=== PATIENT | female | born 1975 | race Caucasian/White ===

== ENCOUNTER 2017-11-03 17:34 | Emergency (ER) | payer SELFPAY ==
[2017-11-03 17:34] VITALS: BMI 25.0
[2017-11-03 17:39] VITALS: BP 145/94; PULSE 81; RESP 16; TEMP 98.1; O2SAT 98
[2017-11-03 18:08] LABS: SQUAMOUS EPITHIAL 5 /hpf (0-5); URINE BACTERIA RARE (<OCC); URINE BILIRUBIN NEGATIVE (NEGATIVE); URINE BLOOD NEGATIVE (NEGATIVE); URINE CLARITY Clear (Clear); URINE COLOR Yellow (YELLOW); URINE GLUCOSE (UA) NORMAL (Normal); URINE LEUKOCYTE ESTERASE NEG Leu/uL (Negative); URINE PROTEIN NEGATIVE (NEGATIVE); URINE UROBILINOGEN NORMAL mg/dL (0.2-1.0)
[2017-11-03 18:11] LABS: HCG,QUALITATIVE URINE NEGATIVE (NEGATIVE)
--- NOTE | 2017-11-03 19:24 | C.PDOC ---
History Of Present Illness 42 y/o female presents to the ED for evaluation of an itching and burning sensation to her vaginal area which began yesterday. Patient thought she had a UTI, for which she took leftover Amoxicillin without relief. She reports similar symptoms in the past, she gets a yeast infection after taking antibiotics and this feels similar. Patient is not concerned for STDs. Patient denies fever, vaginal discharge or bleeding , abdominal pain, back pain, rash or n/v. Time Seen by Provider: 11/03/17 18:20 Chief Complaint (Nursing): Female Genitourinary History Per: Patient History/Exam Limitations: no limitations Onset/Duration Of Symptoms: Hrs Current Symptoms Are (Timing): Still Present Quality Of Discomfort: Burning Associated Symptoms: denies: Fever, Chills Additional History Per: Patient Abnormal Vaginal Bleeding: No Past Medical History Reviewed: Historical Data, Nursing Documentation, Vital Signs Vital Signs: Last Vital Signs Temp 98.1 F 11/03/17 17:36 Pulse 81 11/03/17 17:36 Resp 16 11/03/17 17:36 BP 145/94 H 11/03/17 17:36 Pulse Ox 98 11/05/17 03:10 - Medical History PMH: Gastritis, Rheumatoid Arthritis Denies: Arthritis, Colonic Polyps, Crohn's Disease, Diverticulitis, Fractures , Gall Bladder Disease, Osteoporosis, Pancreatitis, Chronic Kidney Disease Surgical History: No Surg Hx Denies: Appendectomy, CABG, Carotid Endarterectomy, Cholecystectomy, Coronary Stent, Endoscopy, Pacemaker, Tonsillectomy - [facility] Procedures LOC EXC LES METATAR/TAR (03/14/14) Family History: States: Unknown Family Hx - Social History Hx Alcohol Use: No Hx Substance Use: No Review Of Systems Constitutional: Negative for: Fever, Chills Genitourinary: Positive for: Other (vaginal itching and burning ) Physical Exam - Physical Exam Appears: Non-toxic, No Acute Distress Skin: Normal Color, Warm, Dry Head: Atraumatic, Normacephalic Eye(s): bilateral: Normal Inspection, EOMI Nose: Normal Oral Mucosa: Moist Neck: Normal ROM, Supple Chest: Symmetrical Respiratory: No Accessory Muscle Use Gastrointestinal/Abdominal: Soft, No Tenderness Back: No CVA Tenderness, No Vertebral Tenderness Pelvic: Normal External Exam, Vaginal Discharge (thick, white. 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 Patient is resting comfortably, and is in no acute distress. Patient was instructed to follow up with SALES SUPPORT TECHNICIAN in 1-2 days for further evaluation. Disposition - Disposition Disposition: HOME/ ROUTINE Disposition Time: 19:23 Condition: STABLE Additional Instructions: Follow up with your DIRECTOR HR COMMUNICATIONS in 1-2 days. Return to ER if symptoms persist or worsen. 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 - Scribe Statement The provider has reviewed the documentation as recorded by the Scribe (Gabrielle Baker) All medical record entries made by the Scribe were at my direction and personally dictated by me. I have reviewed the chart and agree that the record accurately reflects my personal performance of the history, physical exam, medical decision making, and the department course for this patient. I have also personally directed, reviewed, and agree with the discharge instructions and disposition.
== END 2017-11-03 19:35 | disposition home or self-care (01) ==
LOC: C.ER 17:34
DX: N76.0 Acute vaginitis (principal); B96.89 Other specified bacterial agents as the cause of diseases classified elsewhere

== ENCOUNTER 2018-06-11 15:50 | Emergency (ER) | payer BC ==
[2018-06-11 15:51] VITALS: BMI 25.0
[2018-06-11] MEDS ORDERED: Iohexol 240 (50 ml) PO STA (17:21)
[2018-06-11] MEDS ORDERED: Sodium Chloride 0.9% 1,000 ML IV STA (17:21)
[2018-06-11] MEDS ORDERED: Sodium Chloride 0.9% 1,000 ML ONE (17:27)
[2018-06-11 17:29] LABS: SQUAMOUS EPITHIAL 6 /hpf (0-5); URINE BILIRUBIN NEGATIVE (NEGATIVE); URINE BLOOD NEGATIVE (NEGATIVE); URINE CLARITY Hazy (Clear); URINE COLOR Yellow (YELLOW); URINE GLUCOSE (UA) NORMAL (Normal); URINE LEUKOCYTE ESTERASE NEG Leu/uL (Negative); URINE PROTEIN NEGATIVE (NEGATIVE); URINE UROBILINOGEN NORMAL mg/dL (0.2-1.0)
[2018-06-11] MEDS ORDERED: Iohexol 240 (50 ml) ONE (17:29)
--- NOTE | 2018-06-11 17:39 | C.PDOC ---
History Of Present Illness 43 y/o female presents to the ED complaining of right lower quadrant abdominal pain that began this morning. Patient also complains of feeling nauseous, but no vomiting. Reports poor appetite today. Otherwise she denies any diarrhea, bloody stools, fever, chills, or urinary symptoms. Patient reports known PMHx of right ovarian cyst, but states current pain is different. <Ruby Jung - Last Filed: 06/11/18 19:00> History Per: Patient History/Exam Limitations: no limitations Onset/Duration Of Symptoms: Hrs Current Symptoms Are (Timing): Still Present Severity: Moderate Location Of Pain/Discomfort: RLQ Associated Symptoms: Nausea, Loss Of Appetite <Ruby Jung - Last Filed: 06/11/18 19:00> <Vincent Maxwell - Last Filed: 06/11/18 20:26> Time Seen by Provider: 06/11/18 16:33 Chief Complaint (Nursing): Abdominal Pain Past Medical History Reviewed: Historical Data, Nursing Documentation, Vital Signs Vital Signs: Last Vital Signs Temp 98.2 F 06/11/18 16:06 Pulse 84 06/11/18 16:06 Resp 22 06/11/18 16:06 BP 150/106 H 06/11/18 16:06 Pulse Ox 100 06/11/18 16:06 - Medical History PMH: Gastritis, HTN, Rheumatoid Arthritis Denies: Arthritis, Colonic Polyps, Crohn's Disease, Diverticulitis, Fractures, Gall Bladder Disease, Osteoporosis, Pancreatitis, Chronic Kidney Disease Surgical History: Denies: Appendectomy, CABG, Carotid Endarterectomy, Cholecystectomy, Coronary Stent, Endoscopy, Pacemaker, Tonsillectomy - [facility] Procedures LOC EXC LES METATAR/TAR (03/14/14) Family History: States: Unknown Family Hx - Social History Hx Alcohol Use: Yes Hx Substance Use: No - Immunization History Hx Tetanus Toxoid Vaccination: No Hx Influenza Vaccination: No Hx Pneumococcal Vaccination: No <Ruby Jung - Last Filed: 06/11/18 19:00> Vital Signs: Last Vital Signs Temp 97.8 F 06/11/18 20:18 Pulse 62 06/11/18 20:18 Resp 16 06/11/18 20:18 BP 137/89 06/11/18 20:18 Pulse Ox 99 06/11/18 20:18 - [facility] Procedures LOC EXC LES METATAR/TAR (03/14/14) <Vincent Maxwell - Last Filed: 06/11/18 20:26> Review Of Systems Except As Marked, All Systems Reviewed And Found Negative. Constitutional: Negative for: Fever, Chills, Sweats Cardiovascular: Negative for: Chest Pain Respiratory: Negative for: Shortness of Breath Gastrointestinal: Positive for: Nausea, Abdominal Pain (RLQ), Other (Decreased appetite). Negative for: Vomiting, Diarrhea, Constipation, Hematochezia Skin: Negative for: Rash Neurological: Negative for: Weakness, Numbness <Ruby Jung - Last Filed: 06/11/18 19:00> Physical Exam - Physical Exam Appears: Non-toxic, No Acute Distress Skin: Normal Color, Warm, Dry Head: Atraumatic, Normacephalic Eye(s): bilateral: Normal Inspection, PERRL, EOMI Oral Mucosa: Moist Neck: Normal ROM, Supple Chest: Symmetrical Cardiovascular: Rhythm Regular, No Murmur Respiratory: Normal Breath Sounds, No Rales, No Rhonchi, No Wheezing Gastrointestinal/Abdominal: Soft, Tenderness (to the RLQ), Guarding (RLQ), Rebound (RLQ) Extremity: Bilateral: Atraumatic, Normal Color And Temperature Pulses: Left Dorsalis Pedis: Normal, Right Dorsalis Pedis: Normal Neurological/Psych: Oriented x3 <Ruby Jung - Last Filed: 06/11/18 19:00> ED Course And Treatment - Laboratory Results Result Diagrams: 06/11/18 17:37 06/11/18 17:37 O2 Sat by Pulse Oximetry: 100 (RA) Pulse Ox Interpretation: Normal Progress Note: Ordered UA and blood work with lipase level. CT Abdomen/Pelvis ordered with IV contrast. Administered IVF hydration, 4 mg IV Zofran, and 30 mg IV Toradol. <Ruby Jung - Last Filed: 06/11/18 19:00> - Laboratory Results Result Diagrams: 06/11/18 17:37 06/11/18 17:37 Pulse Ox Interpretation: Normal Progress Note: Pt does not want to get a pelvic US. 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 <Vincent Maxwell - Last Filed: 06/11/18 20:26> Disposition - Disposition Disposition Time: 19:02 <Ruby Jung - Last Filed: 06/11/18 19:00> Counseled Patient/Family Regarding: Studies Performed, Diagnosis, Need For Followup <Vincent Maxwell - Last Filed: 06/11/18 20:26> - Disposition Disposition: HOME/ ROUTINE Condition: FAIR Additional Instructions: Please follow up with your supervisor wire rope fabrication Instructions: Acute Abdomen (Belly Pain), Adult (DC), Ovarian Cyst (DC) Forms: [employer] (Greek) - Clinical Impression Clinical Impression: Abdominal pain - PA / DOOR REPAIRMAN / Resident Statement MD/DO has reviewed & agrees with the documentation as recorded. - Scribe Statement The provider has reviewed the documentation as recorded by the Asimibcharis Lock All medical record entries made by the Asimibcharis were at my direction and personally dictated by me. I have reviewed the chart and agree that the record accurately reflects my personal performance of the history, physical exam, medical decision making, and the department course for this patient. I have also personally directed, reviewed, and agree with the discharge instructions and disposition. <Ruby Jung - Last Filed: 06/11/18 19:00> Physician Patient Turnover Patient Signed Over To: Vincent Maxwell Handoff Comments: PENDING CT REPORT AND DISPO <Ruby Jung - Last Filed: 06/11/18 19:00>
[2018-06-11 17:43] LABS: BASO % 0.4 % (0.0-2.0); EOS # 0.1 K/uL (0.0-0.7); EOS % 1.4 % (0.0-4.0); LYMPH # 2.5 K/uL (1.0-4.3); LYMPH % 28.3 % (20.0-40.0); MEAN PLATELET VOLUME 7.8 fL (7.2-11.7); MONO # 0.6 K/uL (0.0-0.8); MONO % 6.6 % (0.0-10.0); NEUT # 5.6 K/uL (1.8-7.0); NEUT % 63.3 % (50.0-75.0); RBC 4.37 Mil/uL (3.80-5.20); WHITE BLOOD COUNT 8.8 K/uL (4.8-10.8)
[2018-06-11 17:49] LABS: MEAN CELL VOLUME 94.2 fL (81.0-99.0)
[2018-06-11] MEDS ORDERED: Morphine 4 MG/ML VIAL ONE ×2 (17:52→18:27)
[2018-06-11 17:57] LABS: ALB/GLOB RATIO 1.4 (1.0-2.1); ALBUMIN 4.3 g/dL (3.5-5.0); ALT/SGPT 42 U/L (9-52); AST/SGOT 29 U/L (14-36); BLOOD UREA NITROGEN 13 mg/dL (7-17); CALCIUM 9.2 mg/dl (8.6-10.4); GFR NON-AFRICAN AMERICAN > 60; LIPASE 108 U/L (23-300)
[2018-06-11 18:29] VITALS: PULSE 62
[2018-06-11] MEDS ORDERED: Iodixanol 320 MG/ML 100 ML BOTTLE IV ONE (18:50)
[2018-06-11 20:18] VITALS: BP 137/89; RESP 16; TEMP 97.8; O2SAT 99
--- NOTE | 2018-06-12 12:53 | CT ---
PROCEDURE: CT Abdomen and Pelvis with oral and IV contrast. HISTORY: RLQ abd pain COMPARISON: None available TECHNIQUE: Contiguous axial images of the abdomen and pelvis. Oral and IV contrast was administered. Coronal and Sagittal reformats generated and reviewed. Contrast dose: 100 mL Visipaque 320 IV Radiation dose: Total exam DLP = 1097.13 mGy-cm. This CT exam was performed using one or more of the following dose reduction techniques: Automated exposure control, adjustment of the mA and/or kV according to patient size, and/or use of iterative reconstruction technique. FINDINGS: LOWER THORAX: No visible consolidation, pleural effusion, or pneumothorax. LIVER: Unremarkable. GALLBLADDER AND BILE DUCTS: Unremarkable. PANCREAS: Unremarkable. SPLEEN: Unremarkable. ADRENALS: Unremarkable. KIDNEYS AND URETERS: The kidneys enhance symmetrically. No hydronephrosis or obstructing renal calculus. BLADDER: The urinary bladder appears unremarkable. REPRODUCTIVE: Uterus is present. Fluid noted within the endometrium. Suspect left ovarian cyst. Recommend further evaluation with pelvic ultrasound. APPENDIX: The appendix appears within normal limits of caliber. No secondary signs of acute appendicitis. BOWEL: The stomach is nondistended. The bowel loops appear within normal limits of caliber without evidence of intestinal obstruction. PERITONEUM: No significant free fluid. No definite free air. LYMPH NODES: No bulky lymphadenopathy identified. VASCULATURE: No aortic aneurysm. No atherosclerotic calcification or mural plaque present. BONES: L5-S1 intervertebral disc space narrowing and vacuum disc phenomenon. OTHER FINDINGS: None. IMPRESSION: Uterus is present. Fluid noted within the endometrium. Suspect left ovarian cyst. Recommend further evaluation with pelvic ultrasound. Additional incidental findings as above. Preliminary impression was provided by [email or web address]
== END 2018-06-11 20:40 | disposition home or self-care (01) ==
LOC: C.ER 15:50
DX: R10.31 Right lower quadrant pain (principal); I10 Essential (primary) hypertension; M06.9 Rheumatoid arthritis, unspecified
CPT/HCPCS: 74177; 80053; 81001; 83690; 84703; 85025; 96361; 96374; 96375; 96376; 99285; J1885; J2270; J2405; J7030; Q9966; Q9967

== ENCOUNTER 2018-06-24 09:07 | Outpatient (CLI) | payer OTHER | END 2018-06-24 09:08 | disposition home or self-care (01) | LOC: C.MAMMO 09:08 | DX: Z12.31 Encounter for screening mammogram for malignant neoplasm of breast (principal) ==